=== PATIENT | male | born 1950 | race Caucasian/White ===

== ENCOUNTER 2025-08-01 08:45 | Outpatient (AMB) | payer MEDICARE, SELFPAY ==
--- NOTE | 2025-08-01 08:52 | MHC.PC.OV ---
Vital Signs 08/01/25 08:56 Height 5 ft 11.26 in Weight 212 lb 6 oz BMI 29.4 Intake Visit Reasons: Rt dorsal foot,junct.displastic nevus w/mod.atypia Intake Note: Lex is a 74 year old male who presents to the office today as a new patient visit for Rt dorsal foot,junct.displastic nevus w/mod.atypia referred by his [employer] Manager. Pt states it has been going on for about 3 years. Denies any previous treatments or pain to the area. He reports he had a biopsy done at [facility] on 07/03/25. Allergies Sulfa (Sulfonamide Antibiotics) Allergy (Unknown, Verified 08/01/25 09:00) N/A Physical exam (Primary Care) BMI result Body Mass Index 29.4 Coding Diagnoses Acquired hammertoes of both feet M20.41; M20.42 Hallux valgus, bilateral M20.11; M20.12 Assessment & Plan Assessment & Plan (1) Acquired hammertoes of both feet: Code(s): M20.41 - Other hammer toe(s) (acquired), right foot; M20.42 - Other hammer toe(s) (acquired), left foot Category: Medical (2) Hallux valgus, bilateral: Code(s): M20.11 - Hallux valgus (acquired), right foot; M20.12 - Hallux valgus (acquired), left foot Category: Medical Orders: Orders XR Foot Ilir 3V Today M20.11 - Hallux valgus (acquired), right foot, M20.12 - Hallux valgus (acquired), left foot, M20.41 - Other hammer toe(s) (acquired), right foot, M20.42 - Other hammer toe(s) (acquired), left foot
[2025-08-01 08:56] VITALS: BMI 29.4
--- NOTE | 2025-08-01 09:27 | A.OFFVIS_ITS ---
Vital Signs 3 08/01/25 08:56 Height 5 ft 11.26 in Weight 212 lb 6 oz BMI 29.4 Intake Visit Reasons: Rt dorsal foot,junct.displastic nevus w/mod.atypia Intake Note: Lex is a 74 year old male who presents to the office today as a new patient visit for Rt dorsal foot,junct.displastic nevus w/mod.atypia referred by his Manager Sound. Pt states it has been going on for about 3 years. Denies any previous treatments or pain to the area. He reports he had a biopsy done at [facility] on 07/03/25. Allergies Sulfa (Sulfonamide Antibiotics) Allergy (Unknown, Verified 08/01/25 09:00) N/A HPI Comments Details: Chief Complaint The patient presents for evaluation and management of an atypical mole on his right foot, which previously underwent a shave biopsy. History of Present Illness The patient is a 74 year old male presenting for consultation regarding a previously biopsied mole on his right foot and for evaluation of his bilateral bunions and peripheral neuropathy. Atypical Nevus of Foot: The patient had a mole on his right foot that underwent a shave biopsied by a voice network administrator group on 07/03/2025. Pathology results had indicated atypia extending to the margin of the specimen, prompting the referral for wider excision. Bilateral Hallux Valgus: The patient reports having bilateral bunions which are bothersome. The bunions cause the second toe to push upwards and result in irritation. He reports the symptoms are intermittent. Hereditary Peripheral Neuropathy: The patient reports a 20-year history of mild numbness in his feet, primarily affecting the forefoot and toes. The condition has not worsened over time and he denies any associated pain, burning, or sharp sensations. Previous blood tests to investigate the cause were unremarkable, and he has a family history of the condition, affecting his father and brother. Coronary Artery Disease: The patient has a history of coronary artery disease and underwent an angioplasty with a drug-coated balloon. 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 - Activity Level: Reports being pretty much sedentary. Review of Systems Const All systems reviewed & are unremarkable except as noted in HPI and below Physical Exam Exam Exam: Diagnostic results Pathology results - Shave biopsy of foot mole: Atypia extending to the margin of the specimen. Physical Exam - Feet: Large bunions noted bilaterally. - Integumentary: A small lesion is present on the foot. - Neurological: Sensory examination performed with a sharp stimulus on the feet revealed grossly intact sensation. Vital Signs: BMI result Body Mass Index 29.4 Extrem Other: *Bilateral Lower Extremity Focused Exam Vascular: DP/PT 1/4, CFT<3s to digits, TG warm to cool, no pedal edema, pedal hair absent Derm: 0.4cm x 0.3cm hyperpigmented lesion over the dorsal aspect of the right foot proximal to the 4th MTP. The lesion is asymmetric, irregular shaped with ill-defined borders. 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 Assessment & Plan Assessment & Plan (1) Nevus: Comment: dysplastic junctional nevus with moderate atypia Code(s): D22.9 - Melanocytic nevi, unspecified Category: Medical Plan: * Plan for a wide surgical excision to be performed at [facility] under local anesthesia. * The excision will aim for a 1 cm margin, and the specimen will be sent for routine pathology. * Post-procedure, the patient will have approximately two follow-up visits for wound check and suture removal. * He is on ASA 81mg but likely will not need to hold it prior to surgery. (2) Acquired hammertoes of both feet: Code(s): M20.41 - Other hammer toe(s) (acquired), right foot; M20.42 - Other hammer toe(s) (acquired), left foot Category: Medical Plan: * Ordered bilateral standing foot x-rays to be done at the hospital to fully assess the deformity and guide treatment planning. (3) Hallux valgus, bilateral: Code(s): M20.11 - Hallux valgus (acquired), right foot; M20.12 - Hallux valgus (acquired), left foot Category: Medical Plan: * Ordered bilateral standing foot x-rays to be done at the hospital to fully assess the deformity and guide treatment planning. * Discussed non-surgical options such as a bunion sleeve or spacer to alleviate irritation. * Discussed surgical correction, including different procedural options, the recovery process involving a surgical shoe for 1-2 months, and a one-month driving restriction for right foot surgery. * Recommended against performing surgery on both feet simultaneously. * Will discuss a definitive plan after reviewing the x-ray results. (4) Idiopathic neuropathy: Code(s): G60.9 - Hereditary and idiopathic neuropathy, unspecified Category: Medical Plan: * Counseled the patient that treatments like Lyrica or Qutenza are for painful neuropathy and are not indicated for his symptoms of numbness. * No further workup or active treatment is planned at this time given the stable and non-painful nature of his symptoms. Plan Counseling The patient was counseled on the plan for a wide excision of the atypical nevus on his foot, and potential risks like infection. Counseling was provided regarding management options for his bilateral bunions. A detailed discussion covered surgical correction, recovery expectations including the use of a surgical shoe, driving restrictions, and the recommendation to operate on one foot at a time. Orders: Orders 2 XR Foot Ilir 3V Today M20.11 - Hallux valgus (acquired), right foot, M20.12 - Hallux valgus (acquired), left foot, M20.41 - Other hammer toe(s) (acquired), right foot, M20.42 - Other hammer toe(s) (acquired), left foot Referrals 2 Podiatry Procedure Notification D22.9 - Melanocytic nevi, unspecified Coding Level of Care Code New Pt Level 4 (38334) Diagnoses Nevus D22.9 Acquired hammertoes of both feet M20.41; M20.42 Hallux valgus, bilateral M20.11; M20.12 Idiopathic neuropathy G60.9 Time Spent (min) 35
== END 2025-08-01 09:24 | disposition home or self-care (01) ==
LOC: HO.HPODS 08:46
PROVIDERS: PCP Physician Assistant; Visit Provider Student in an Organized Health Care Education/Training Program
DX: D22.9 Melanocytic nevi, unspecified (principal); M20.41 Other hammer toe(s) (acquired), right foot; M20.42 Other hammer toe(s) (acquired), left foot; M20.11 Hallux valgus (acquired), right foot; M20.12 Hallux valgus (acquired), left foot; G60.9 Hereditary and idiopathic neuropathy, unspecified
CPT/HCPCS: 99204

== ENCOUNTER → 2025-08-01 08:45 | Outpatient (BNVA) | payer MEDICARE, SELFPAY | PROVIDERS: PCP Physician Assistant; Visit Provider Student in an Organized Health Care Education/Training Program | DX: D22.9 Melanocytic nevi, unspecified (principal); M20.41 Other hammer toe(s) (acquired), right foot; M20.42 Other hammer toe(s) (acquired), left foot; M20.11 Hallux valgus (acquired), right foot; M20.12 Hallux valgus (acquired), left foot; G60.9 Hereditary and idiopathic neuropathy, unspecified | CPT/HCPCS: 99202 ==

== ENCOUNTER 2025-08-02 09:59 | Outpatient (REF) | payer MEDICARE, SELFPAY ==
--- NOTE | ~2025-08-02 | XR_ITS ---
Exam: XR FOOT 3 OR MORE VIEWS BILATERAL, bilateral foot x-rays TECHNIQUE: AP, OBL and lateral views lower extremity, bilateral feet INDICATION: M20.11 - Hallux valgus (acquired), right foot COMPARISON: None available. FINDINGS: RIGHT FOOT: The first MTP joint demonstrates marginal osteophytes and mild asymmetric narrowing. There are minute enthesophytes at the plantar fascia and calcaneal attachment on calcaneus. There are small marginal sites in the dorsal talonavicular joint. There are small marginal sites involving the talotibial joint. Intermetatarsal angle: Angle between the first and second metatarsal measured 8 degrees. (wnl <10 degrees). Metatarsophalangeal angle: Angle between the first metatarsal and proximal phalanx measured 31 degrees. (wnl <15 degrees). Interphalangeal angle: Angle between the proximal and distal phalanx measured 11 degrees. (wnl <10 degrees). Sesamoid position: Station 3 LEFT FOOT: There is mild asymmetric narrowing of the first MTP joint with marginal osteophytes and degenerative cystic change. There are minute marginal sites on the lateral IP joint of the great toe. There are marginal sites involving the anterior talotibial joint. Intermetatarsal angle: Angle between the first and second metatarsal measured 11 degrees. (wnl <10 degrees). Metatarsophalangeal angle: Angle between the first metatarsal and proximal phalanx measured 34 degrees. (wnl <15 degrees). Interphalangeal angle: Angle between the proximal and distal phalanx measured 11 degrees. (wnl <10 degrees). Sesamoid position: Station 3 XR/XR Foot Ilir 3V IMPRESSION: Right foot: Hallux valgus deformity with degenerative changes as noted above. Left foot: Hallux valgus deformity with degenerative changes as noted above. Station Criterion 0 medial sesamoid completely medial to mid-axial line of the first metatarsal 1 medial sesamoid less than 50% overlapping the midline 2 medial sesamoid greater than 50% overlapping the midline 3 medial sesamoid completely lateral to the midline [Foot Ankle. Apr-May 1984;5(2):92-103. Hallux valgus assessment: report of research committee of [employer]] Electronically signed by: Sunny Gamez MD 08/02/2025 10:45 AM EST
--- OUTSIDE RECORDS SUMMARY | 2025-08-02 11:11 | XMS_ITS | Encounter Summary ---
Author Organization [facility] Address [address] [place] [address] Phone Care Team Providers Care Change Management Director Name Role Phone Raine Weiner Primary Care Provider [phone] Reason for Visit * Reason Onset Date Comments letter 06/07/2025 Encounter Details Date Type Department Care Team (Late st Contact Info) Description 06/07/2025 Telephone [facility] [place] [address] Migel Jay PA-C [place], [place] [id number] [email or web address] letter Social History Tobacco Use Types Packs/Day Years Used Date Smoking Tobacco: Never Assessed Education Answer Date Recorded Are you interested in more education? Not on osvaldo e 12/10/2022 Are you concerned about learning? Not on file 12/10/2022 No 12/10/2022 No 12/10/2022 Digital Access Answer Date Recorded No 01/05/2023 No 01/05/2023 No 01/05/2023 Reliable internet access at home? Not on file 01/05/2023 Device with a working camera? Not on file Sex and Gender Information Value Date Recorded Sex Assigned at Not on file Legal Sex Male 5:11 PM EDT Gender Identity Not on file Sexual Orientation Not on file documented as of this encounter Progress Notes * Vianey Candelaria - 06/07/2025 3:45 PM EDT The patient is going to bring the letter that Migel Pierre wrote so it could be signed. He is leaving on Tuesday and hopes to have it signed today. documented in this encounter Plan of Treatment Not on file documented as of this encounter Visit Diagnoses Not on filedocumented in this encounter Care Teams Change Management Director Relationship Specialty Start Date End Date Raine Weiner PA [address] [facility], [facility] [address] [place] [address] PCP - General Physician Recreation Attendant 03/18/25 documented as of this encounter Additional Source Comments The information contained in this document represents components of the legal health record. It is not the complete legal health record.[facility]
--- OUTSIDE RECORDS SUMMARY | 2025-08-02 11:12 | XMS_ITS | Clinical Summary ---
Author Organization [facility] Address [address] [place] [address] Phone Care Team Providers Care Crude Tester Name Role Phone Raine Weiner Primary Care Provider [phone] Allergies Active Allergy Reactions Criticality Noted Date Comments Sulfa (Sulfonamide Antibiotics) 03/22/2025 Unknown response. Told by parent. Medications No known medications Active Problems Problem Noted Date Diagnosed Date Closed fracture of right ankle with routine heal ing 03/22/2025 Assessment & Plan (06/07/2025 3:26 PM EDT): Assessment & Plan (04/26/2025 2:22 PM EDT): Overall, he is improving. We will now transition him out of his tall cam boot into an ankle brace which he will wear at all times until he is pain-free for at least 2 weeks. [place]. I will see him on his return. Normally I would see him in 4 to 6 weeks with updated x-rays of his right ankle Assessment & Plan (04/12/2025 11:27 AM EDT): Based on physical examination today and the injury 4 weeks ago, I feel comfortable allowing him to begin slow progressive weight-bear as tolerated in the cam boot. He will first begin inside his house and once he feels stable and safe he can then begin weight-bear as tolerated in the tall cam boot outside. My ultimate goal is for him to be completely pain-free for at least 2 weeks in the tall cam boot then possibly transition into an ankle brace. He prefers to continue basic range of motion exercises on his own. [place] and [place] will be gone for possibly a couple months. I will see him right before he leaves we will obtain updated weight-bear right ankle x-rays. Assessment & Plan (03/29/2025 9:06 AM EDT): Since his last visit there has been decrease inflammation/swelling improve range of motion. Unfortunately currently at 9:03 AM during his an appointment time our radiological system is currently down I cannot review his x-rays. Upon my review I will determine if we can continue on the same path or he possibly may be required to be evaluated by a foot and ankle specialist. In the meantime, he will continue his tall cam boot utilizing his knee scooter with minimum weight-bear. Obtain new WB ankle x-rays of the right ankle before next appt. Assessment & Plan (03/22/2025 10:13 AM EDT): a minimally displaced, oblique fracture of the distal fibula at the level of the syndesmosis. There is no widening of the medial tibiotalar joint with stress. FU in 7 - 10 days for WB right ankle x-rays out of the [facility] CAM boot Encounters Date Type Department Care Team Description 06/07/2025 2:45 PM EDT Office Visit [facility] Orthopedics [facility] [place] [address] Migel Jay PA-C Closed fracture of right ankle with routine healing (Primary Dx) 06/07/2025 12:53 PM EDT - 06/07/2025 11:59 PM EDT Hospital Encounter [facility] Radiology - Xray [facility] [place] [address] Migel Jay PA-C Discharge Disposition: Home or Self Care 06/07/2025 Telephone [facility]oped[facility] [place] [address] Migel Jay PA-C letter 06/05/2025 Orders Only [facility] [address] [place], [place] [address] Paty Baca Closed fracture of right ankle with routine healing (Primary Dx) from Last 3 Months Immunizations Immunization Administration Dates Next Due COVID-19 (Pre-06/06) Pfizer Vaccine, mRNA, PF ,11/01/2020 Social History Tobacco Use Types Packs/Day Years [...] on file Sexual Orientation Not on file Plan of Treatment Health Maintenance Due Date Last Done Comments DEPRESSION SCREENING 1962 SMOKING Hx and SMOKELESS TOBACCO SCREENING 11/15/1964 HEPATITIS C SCREENING 11/15/1969 COLOGUARD 11/15/1996 COLONOSCOPY 11/15/1996 COLORECTAL CANCER SCREENING 11/15/1996 FIT TEST 11/15/1996 FOBT 11/15/1996 SIGMOIDOSCOPY 11/15/1996 VIRTUAL COLONOSCOPY 11/15/1996 PNEUMOCOCCAL VACCINES (50+ years) (3 of 3 - PCV20 or PCV21) 02/14/2023 02/14/2018, 09/19/2015 COVID-19 VACCINE ( season) 2025 06/05/2025, 05/03/2024, 05/24/2023, Additional history exists LIPID PANEL 07/14/2026 07/14/2021 Adult Td,Tdap Booster 04/09/2030 04/09/2020 , 11/18/2010, 04/21/2003 ZOSTER VACCINES Completed 10/12/2020, 07/16, 01/15/2013 RSV VACCINE Completed 05/03/2024 INFLUENZA VACCINE Completed 06/05/2025, , 05/24/2023, Additional history exists HEPATITIS A VACCINES Aged Out No long er eligible based on patient's age to complete this topic HIB VACCINES Aged Out No longer eligi ble based on patient's age to complete this topic MENINGOCOCCAL VACCINES (ACWY) Aged Out No longer eligible based on patient's age to complete this topic MENINGOCOCCAL VACCINES (B) Aged Out N o longer eligible based on patient's age to complete this topic Medical Devices Not on file Procedures Procedure Name Priority Date/Time Associated Diagnosis Comments XR ANKLE 3 OR MORE VIEWS (RIGHT) Routine 06/07/2025 1:09 PM EDT Closed fracture of right ankle with routine healing from Last 3 Months Results * XR ANKLE 3 OR MORE VIEWS (RIGHT) (06/07/2025 1:09 PM EDT) Anatomical Region Laterality Modality Ankle Right Radiographic Debbie ging 06/07/2025 2:42 PM EDT Impressions 06/07/2025 2:43 PM EDT Healing minimally displaced right distal fibula fracture. No change in alignment. Narrative 06/07/2025 2:43 PM EDT XR ANKLE 3 OR MORE VIEWS (RIGHT) Referring clinician's provided indication for this examination in [facility]: Fracture Follow Up COMPARISON: XR ANKLE 3 OR MORE VIEWS (RIGHT) FINDINGS: Minimally displaced distal fibula fracture is redemonstrated. Alignment of fracture fragments is unchanged. There is increasing callus formation consistent with healing. Solid bridging is incomplete. Overlying soft tissue swelling has decreased. No new fracture or dislocation. Trace ankle effusion. Ankle mortise is anatomic. Mild osteoarthritis of the tibiotalar joint. Minimal Achilles enthesopathy. Procedure Note Reza Buchanan MD - 06/07/2025 XR ANKLE 3 OR MORE VIEWS (RIGHT) Referring clinician's provided indication for this examination in [facility]:Fracture Follow Up COMPARISON: XR ANKLE 3 OR MORE VIEWS (RIGHT) FINDINGS: Minimally displaced distal fibula fracture is redemonstrated. Alignment offracture fragments is unchanged. There is increasing callus formationconsistent with healing. Solid bridging is incomplete. Overlying softtissue swelling has decreased. No new fracture or dislocation. Trace ankle effusion. Ankle mortise isanatomic. Mild osteoarthritis of the tibiotalar joint. Minimal Achillesenthesopathy. IMPRESSION: Healing minimally displaced right distal fibula fracture. No change inalignment. us Migel Veloz Ray PA-C IMG XR LOWER EXTREMITY Mervat l Result from Last [address] [place] [address] [place] [address] MEDICARE [address] [place] [address] [place] [address] [address] [place] [address] [address] [place] [address] [place] [address] [address] [place] [address] [place] [address] MEDICARE PPO BLUE REPLACEMENT Care Teams Crude Tester Relationship Specialty Start Date End Date Raine Weiner PA [address], [facility] [address] [place] [address] PCP - General Physician Scorer Helper 03/18/25 Additional Source Comments The information contained in this document represents components of the legal health record. It is not the complete legal health record.[facility]
== END 2025-08-02 10:00 | disposition home or self-care (01) ==
LOC: HO.XRAY 09:59
PROVIDERS: PCP Physician Assistant Medical; Visit Provider Student in an Organized Health Care Education/Training Program
DX: M20.11 Hallux valgus (acquired), right foot (principal); M20.12 Hallux valgus (acquired), left foot; M20.41 Other hammer toe(s) (acquired), right foot; M20.42 Other hammer toe(s) (acquired), left foot
CPT/HCPCS: 73630

== ENCOUNTER → 2025-08-02 10:03 | Outpatient (BNV) | payer MEDICARE, SELFPAY | PROVIDERS: PCP Physician Assistant Medical; Visit Provider Radiology Diagnostic Radiology | DX: M20.11 Hallux valgus (acquired), right foot (principal); M20.12 Hallux valgus (acquired), left foot | CPT/HCPCS: 73630 ==